=== PATIENT | male | born 1955 | race Caucasian/White ===

== ENCOUNTER → 2017-09-01 14:50 | Outpatient (CLI) | payer OTHER, SELFPAY ==
--- NOTE | 2017-09-01 14:52 | ADUL_ITS ---
Reason For Study: Iliac artery aneurysm Right Velocities Common Iliac Artery, prox= 176 cm./sec. Common Iliac Artery, mid = 63.6 cm./sec. Common Iliac Artery, dist = 121 cm./sec. Right Common Iliac Prox short 1.15 x 1.21 cm. Right Common Iliac Prox long 1.12 cm. Right Common Iliac Mid short 2.44 x 2.52 cm. Right Common Iliac Mid long 2.43 cm. Right Common Iliac Dist short 1.78 x 1.66 cm. Right Common Iliac Dist long 1.6 cm. 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 No change from the previous examination of 07/02/16 and minimal change from a remote exam of 05/28/2009 when it was 2.25 x 2.36cm. Ordering Physician: Do Cleary Performed By: Juanito Villareal RVT
== END ==
PROVIDERS: Family Provider Internal Medicine; PCP Internal Medicine; Visit Provider Internal Medicine
DX: I72.3 Aneurysm of iliac artery (principal)
CPT/HCPCS: 93926

== ENCOUNTER → 2020-10-17 15:35 | Outpatient (CLI) | payer MEDICARE, SELFPAY | PROVIDERS: PCP Internal Medicine; Referring Provider Internal Medicine Gastroenterology; Visit Provider Internal Medicine Gastroenterology | DX: Z11.59 Encounter for screening for other viral diseases (principal) | CPT/HCPCS: 87635; C9803; U0002 ==

== ENCOUNTER → 2020-10-19 15:18 | Outpatient (CLI) | payer MEDICARE, SELFPAY ==
--- NOTE | 2020-10-19 12:22 | EGD_PTH ---
PATIENT: HELENE PARISH LOC: [facility] U#:[id number] AGE/SX: 69/M ROOM: RE10/19/[address]: Dr. Delmer Rdz MD : 1955 BED: DIS: SPEC #: [id number] RECD: 10/19/20 15:01 STATUS: MENDEZ WHITFIELDShania #: [id number] [place]: 10/19/20 12:[address]: Delmer Rdz DEPT: SURGICAL PATHOLOGY RECD BY: Susan Atkins ENTERED: 10/22/20 08:20 SP TYPE: EGD BIOPSY OT DR: Dr. Do Cleary, [facility] Tissues: Gastric mucous membrane Procedures: Special Stain Group II Surgery Specimen Level IV Alcian Blue/PAS (control) HEADER OPERATION: EGD with biopsy PRE-OP DIAGNOSIS: GERD TISSUE SUBMITTED: Biopsy GE junction, rule out Dee's MICROSCOPIC DIAGNOSIS Gastroesophageal junction, biopsy: Mild chronic inflammation. Focal changes of reflux. No evidence of goblet cell metaplasia. See comment. AM:olvin 10/23/2020 COMMENT Alcian blue/PAS stain with matched control supports the above diagnosis. MICROSCOPIC DESCRIPTION Slides are reviewed. GROSS DESCRIPTION Received in fixative is one container labeled with the patient's name and designated biopsy GE junction. The specimen consists of multiple irregular fragments of light dalton soft tissue that in aggregate measure 0.6 x 0.5 x 0.1 cm. The specimen is totally submitted in one cassette. / SJ:olvin 10/22/20 TC:3 CPT: 71467, [id number]
== END ==
PROVIDERS: PCP Internal Medicine; Referring Provider Internal Medicine Gastroenterology; Visit Provider Internal Medicine Gastroenterology
DX: K21.9 Gastro-esophageal reflux disease without esophagitis (principal)
CPT/HCPCS: 88305; 88313

== ENCOUNTER → 2020-11-15 07:48 | Outpatient (CLI) | payer MEDICARE, SELFPAY ==
--- NOTE | 2020-11-15 07:58 | AAVD_ITS ---
Reason For Study: aneurysm Right Velocities Common Iliac Artery, prox= 153.4 cm./sec. Common Iliac Artery, mid = 44.2 cm./sec. Common Iliac Artery, dist = 104.5 cm./sec. Right Common Iliac Prox short 1.11 x 1.26 cm. Right Common Iliac Prox long 1.23 cm. Right Common Iliac Mid short 2.48 x 2.73 cm. Right Common Iliac Mid long 2.63 cm. Right Common Iliac Dist short .98 x .95cm. Right Common Iliac Dist long 1.04 cm. 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
== END ==
PROVIDERS: PCP Internal Medicine; Referring Provider Internal Medicine; Visit Provider Internal Medicine
DX: I72.3 Aneurysm of iliac artery (principal)
CPT/HCPCS: 93978

== ENCOUNTER → 2021-05-06 15:16 | Outpatient (CLI) | payer MEDICARE, SELFPAY ==
[2021-05-06 17:47] LABS: Hematocrit 40.5 % (40-54); Hemoglobin 13.6 g/dL (13.0-16.5); Mean Corp Hgb Conc 33.6 g/dL (32-36); Mean Corpuscular Hgb 32.5 pg (27.0-32.0); Mean Corpuscular Volume 96.9 fL (80-94); Mean Platelet Vol. 10.1 fl (6.2-12.0); Platelet Count 187 K/mm3 (150-450); RBC Distribution Width CV 11.9 % (11.6-14.6); RBC Distribution Width SD 42.5 fl (35.1-43.9); Red Blood Count 4.18 M/mm3 (4.6-6.2); White Blood Count 4.4 K/mm3 (4.4-11.0)
[2021-05-06 19:27] LABS: PSA,Total - Annual Screen 0.32 ng/mL (0.00-4.00); Prolactin 28.8 ng/mL
[2021-05-11 18:07] LABS: Testosterone, % Free 2.58 % (1.50-4.20); Testosterone, Total 252 ng/dL (264-916)
== END ==
PROVIDERS: PCP Internal Medicine; Referring Provider Internal Medicine Endocrinology, Diabetes & Metabolism; Visit Provider Internal Medicine Endocrinology, Diabetes & Metabolism
DX: E29.1 Testicular hypofunction (principal); D35.2 Benign neoplasm of pituitary gland; N42.9 Disorder of prostate, unspecified
CPT/HCPCS: 36415; 84146; 84153; 84402; 84403; 85027; G0103

== ENCOUNTER 2021-10-09 10:48 | Outpatient (CLI) | payer MEDICARE, SELFPAY ==
[2021-10-09 12:20] LABS: Hematocrit 42.4 % (40-54); Hemoglobin 14.4 g/dL (13.0-16.5); Mean Corpuscular Hgb 31.6 pg (27.0-32.0); Mean Platelet Vol. 10.2 fl (6.2-12.0); Platelet Count 184 K/mm3 (150-450); RBC Distribution Width CV 12.1 % (11.6-14.6); RBC Distribution Width SD 41.6 fl (35.1-43.9); Red Blood Count 4.56 M/mm3 (4.6-6.2)
[2021-10-09 12:30] LABS: PSA,Total- Diagnostic 0.44 ng/mL (0.0-4.0)
[2021-10-13 12:07] LABS: Testosterone, Free 11.25 ng/dL (5.00-21.00)
[2021-10-13 12:29] LABS: Testosterone, % Free 2.32 % (1.50-4.20); Testosterone, Total 485 ng/dL (264-916)
== END 2021-10-09 23:59 | disposition home or self-care (01) ==
LOC: MTLAB 10:50
PROVIDERS: PCP Internal Medicine; Referring Provider Internal Medicine Endocrinology, Diabetes & Metabolism; Visit Provider Internal Medicine Endocrinology, Diabetes & Metabolism
DX: E29.1 Testicular hypofunction (principal); D75.1 Secondary polycythemia; N42.9 Disorder of prostate, unspecified
CPT/HCPCS: 36415; 84153; 84402; 84403; 85027

== ENCOUNTER → 2022-04-21 | Outpatient (CLI) | payer MEDICARE, SELFPAY ==
[2022-04-21 15:13] LABS: Hematocrit 43.1 % (40-54); Hemoglobin 14.8 g/dL (13.0-16.5); Mean Corp Hgb Conc 34.3 g/dL (32-36); Mean Corpuscular Volume 96.2 fL (80-94); Mean Platelet Vol. 9.9 fl (6.2-12.0); Platelet Count 173 K/mm3 (150-450); RBC Distribution Width SD 42.6 fl (35.1-43.9); Red Blood Count 4.48 M/mm3 (4.6-6.2); White Blood Count 6.6 K/mm3 (4.4-11.0)
[2022-04-21 16:30] LABS: PSA,Total - Annual Screen 0.45 ng/mL (0.00-4.00); Prolactin 31.8 ng/mL
[2022-05-03 14:12] LABS: Testosterone, Free 22.31 ng/dL (5.00-21.00)
[2022-05-04 11:59] LABS: Testosterone, % Free 2.94 % (1.50-4.20); Testosterone, Total 759 ng/dL (264-916)
== END | disposition home or self-care (01) ==
PROVIDERS: PCP Internal Medicine; Referring Provider Internal Medicine Endocrinology, Diabetes & Metabolism; Visit Provider Internal Medicine Endocrinology, Diabetes & Metabolism
DX: E29.1 Testicular hypofunction (principal); D35.2 Benign neoplasm of pituitary gland; D75.1 Secondary polycythemia; N42.9 Disorder of prostate, unspecified
CPT/HCPCS: 36415; 84146; 84153; 84402; 84403; 85027; G0103

== ENCOUNTER → 2023-01-12 | Outpatient (CLI) | payer MEDICARE, SELFPAY ==
[2023-01-12 11:25] LABS: Prolactin 27.5 ng/mL
== END | disposition home or self-care (01) ==
LOC: LAB 10:31
PROVIDERS: PCP Internal Medicine; Referring Provider Internal Medicine Endocrinology, Diabetes & Metabolism; Visit Provider Internal Medicine Endocrinology, Diabetes & Metabolism
DX: E22.1 Hyperprolactinemia (principal); N42.9 Disorder of prostate, unspecified
CPT/HCPCS: 36415; 84146

== ENCOUNTER → 2023-07-28 | Outpatient (CLI) | payer MEDICARE, SELFPAY ==
--- OUTSIDE RECORDS SUMMARY | 2023-07-28 07:26 | XMS RPT_ITS | CCD ---
Author Name Unknown Address [address] [place] [address] Organization [facility] Care Team Providers Care Green Marketing Specialist Name Role Phone GLADIS CORDERO Unavailable Unavailabl e FAST, WHITNEY A Unavailable Unavailable AllaDo dobson Unavailable Fast, Whitney A Unavailable Skyla Martin Unavailable Delmer Rdz Unavailable Radha Murry Unavailable Unavailable Gravius, Winnie Unavailable Unavailable Unavailable Unavailable Do Cleary Unavailable Fast, Whitney A Unavailable Skyla Martin Unavailable Delmer Rdz Unavailable Chauncey Donovan Unavailable Unavailable MessengerRadha Unavailable Unavailable Unavailable Unavailable Gravius, Winnie Unavailable Unavailable Slarb, Nickie Unavailable Unavailable Gravius, Winnie Unavailable Unavailable Chauncey Donovan Unavailable Unavailable Unavailable Primary Care Provider UnavailChauncey Bashir Unavailable Unavailable Radha Murry Unavailable Unavailable Natividad Puentes Unavailable Unavailable ARLEEN POWELL Primary Care Unavailable ARLEEN POWELL Attending Unavailable FAST, WHITNEY DO Consulting Unavailable ARLEEN POWELL Admitting Unavailable PROVIDER, UNKNOWN Consulting Unavailable ARLEEN POWELL Primary Care Unavailable ARLEEN POWELL Attending Unavailable ALLA DO DO Consulting Unavailable ARLEEN POWELL Admitting Unavailable PROVIDER, UNKNOWN Consulting Unavailable Edilma Cleary DOhleen Unavailable Fast DO, Whitney A Unavailable Skyla Martin MD Unavailable Dr. Delmer Rdz Unavailable Gravius RADAR SYSTEMS ENGINEER, Winnie Unavailable Unavailable Deedee Aguiar MA Unavailable Unavailable Maryam, augusta Unavailable Unavailable Lovely RN, Radha Unavailable Unavailable Unavailable Unavailable Do Cleary DO Unavailable [phone] Fast DO, Whitney A Unavailable Alla COLBERT Do Attending Unavailable Fast DO, Whitney A Referring Unavailable Alla COLBERT Do Consulting Unavailable Félix CRUZ, Kabetya Unavailable Unavailable Alla COLBERT Do Deepti Primary Care Provider [phone] ARLEEN POWELL Attending Unavailable ALLA, DO Primary Care Unavailable Medications Current Medications Medication Drug Class(es) Dates Sig (Normalized) Sig (Original) Calcium-Magnesium 250-125 MG tablet (4 sources) Calcium-Magnesiu m 250-125 MG tablet finasteride 5 mg oral tablet (9 sources) 5-alpha Reductase Inhibitor finasteride (Proscar ) 5 MG tablet Completed/Discontinued Medications Medication Drug Class(es) Dates Sig (Normalized) Sig (Original) acetaminophen 650 mg / propoxyphene napsylate 100 mg oral tablet (20 sources) Opioid Agonist Start: 07-07-2007 End: 04-03-2008 take 1 tablet by mouth once as needed, then take 6 tablets by mouth as needed DARVOCET-N 100, 100-650MG (Oral Tablet) 1 (one) Tablet q 6 prn for 0 days Quantity: 60 {Tablet} Refills: 0 Ordered: 07-Jul-2007 Emely Pal Start : 07-Jul-2007 End : 03-Apr-2008 Discontinued acetaminophen 650 mg / propoxyphene napsylate 100 mg oral tablet (9 sources) Opioid Agonist Start: 07-07-2007 End: 04-03-2008 DARVOCET-N 100, 100-650MG (Oral Tablet) 1 (one) Tablet q 6 prn for 0 days Quantity: 60 {Tablet} Refills: 0 Ordered: 07-Jul-2007 Emely Pal Start : 07-Jul-2007 End : 03-Apr-2008 Discontinued amoxicillin 875 mg / clavulanate 125 mg oral tablet (20 sources) Penicillin-class Antibacterial Start: 10-03-2008 End: 11-01-2008 take 1 tablet by mouth twice daily AUGMENTIN, 875-125MG (Oral Tablet) 1 Tablet bid for 14 days Quantity: 28 {Tablet} Refills: 0 Ordered: 03-Oct-2008 Luanne Porras Start : 03-Oct-2008 End : 01-Nov-2008 Inactive B Complex (1 source) take 1 tablet by mouth once daily B COMPLEX (Oral Tablet) 1 tab qd Inactive B COMPLEX (Oral Tablet) (20 sources) take 1 tablet by mouth once daily B COMPLEX (Oral Tablet) 1 tab qd Inactive cabergoline 0.5 mg oral tablet (20 sources) Ergot Derivative Start: 01-28-2012 End: 09-21-2012 take 1 tablet by mouth every week CABERGOLINE, 0.5MG (Oral Tablet) 1 (one) Tablet bi weekly for 0 days Quantity: 30 {Tablet} Refills: 0 Ordered: 21-Sep-2012 Darci JEAN-BAPTISTERODGER Start : 28-Jan-2012 End : 21-Sep-2012 Inactive Problems Active Problems Problem Classification Problem Date Documented Da te Episodic/Chronic Abdominal pain (20 sources) Acute abdominal pain; Translations: [Abdominal pain, acute, left lower quadrant] Resolved: 01-28-2012 05-30-2016 Episodic Administrative/social admission (20 sources) Patient encounter status; Translations: [Physical exam for work or camp (Renamed from Encounter for school health examination)] 04-03-2021 Episodic Past or Other Problems Problem Classification Problem Date Documented Da te Episodic/Chronic Coronary atherosclerosis and other heart disease (20 sources) Coronary atherosclerosis and other heart disease Gastrointestinal hemorrhage (20 sources) Rectal hemorrhage; Translations: [Rectal bleeding] Onset: 11-06-2009 Resolved: 01-28-2012 05-30-2016 Episodic Headache; including migraine (20 sources) Headache; including migraine Hemorrhoids (20 sources) Hemorrhoids; Translations: [Bleeding internal hemorrhoids] Onset: 12-04-2009 Resolved: 05-30-2016 05-30-2016 Episodic Hepatitis (2 sources) Hepatitis Other and unspecified benign neoplasm (5 sources) Benign neoplasm of pituitary gland; Translations: [Benign neoplasm of pituitary gland] Onset: 03-22-2020 Episodic Other and unspecified benign neoplasm (7 sources) Pituitary adenoma; Translations: [Benign neoplasm of pituitary gland] Onset: 12-10-2010 01-16-2023 Episodic Other hematologic conditions (3 sources) Secondary polycythemia; Translations: [Secondary polycythemia] Onset: 03-22-2020 Episodic Other inflammatory condition of skin (16 sources) Seborrheic dermatitis; Translations: [Seborrhea] Resolved: 05-30-2016 05-30-2016 Episodic Results Test Name Value Interpretation Reference Range Facil ity Vital Signs Date Time Vital Sign Value Performing Clinician Facility 01-16-2023 10:47-0400 Body height 177.8 cm Arleen Powell MD Work Phone: [facility] 01-16-2023 10:47-0400 Body mass index (BMI) [Ratio] 24.97 kg/m2 Arleen Powell MD Work Phone: [facility] 01-16-2023 10:47-0400 Body weight 78.93 kg Arleen Powell MD Work Phone: [facility] 01-16-2023 10:47-0400 Diastolic blood pressure 79 mm[Hg] Arleen Powell MD Work Phone: [facility] 01-16-2023 10:47-0400 Heart rate 56 /min Arleen Powell MD Work Phone: [facility] 01-16-2023 10:47-0400 Systolic blood pressure 116 mm[Hg] Arleen Powell MD Work Phone: [facility] 10-03-2022 11:02-0400 Body height 176.53 cm Danish Heard [facility] Work Phone: 10-03-2022 11:02-0400 Body mass index (BMI) [Ratio] 25.8 kg/m2 Danish Heard [facility] Work Phone: 10-03-2022 11:02-0400 Body surface area Derived from formula 1.97 m2 Danish Heard [facility] Work Phone: 10-03-2022 11:02-0400 Body temperature 96.9 [degF] Danish Heard [facility] Work Phone: 10-03-2022 11:02-0400 Body weight 80.4 kg Danish Heard [facility] Work Phone: 10-03-2022 11:040 Diastolic blood pressure 82 mm[Hg] Danish Heard [facility] Work Phone: Encounters Encounter Date Encounter Type Care Provider Facility Start: 07-20-2023 Yulissa Powell MD Work Phone: [facility] Procedures Date Procedure Procedure Detail Performing Clinician Start: 11-15-2020 End: 11-15-2020 Abd Aortic/IVC Duplex scan Comments: See Note; NOTES: [facility] [address] [place] [address] Abd Aortic/IVC Duplex scan 11/15/20814 MR#: [id number] Acct: [id number] Name: OCTAVIO MCLAIN Rep #: [id number] : 1955 65 From: Jeet Casas MD Attending Dr: Dr. Do Cleary, Status: R EG CLI Ordering Dr: Do Cleary DO Date: 11/15/20 Location: [facility] Sex: M C Admitted: Reason For Study: aneurysm Right Velocities Common Iliac Artery, prox= 153.4 cm./sec. Common Iliac Artery, mid = 44.2 cm./sec. Common Iliac Artery, dist = 104.5 cm./sec. Right Common Iliac Prox short 1.11 x 1.26 cm. Right Common Iliac Prox long 1.23 cm. Right Common Iliac Mid short 2.48 x 2.73 cm. Right Common Iliac Mid long 2.63 cm. Right Common Iliac Dist short .98 x .95cm. Right Common Iliac Dist long 1.04 cm. 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 Do Cleary, Date Dictated: 11/15/20814 Date Transcribed: 11/15/201108 Mechanical Detailer: Mercedez Cleary DO Work Phone: Start: 10-11-2020 [object Object] ARLEEN POWELL Plan of Treatment Date Care Activity Detail Author Start: 08-28-2023 End: 08-28-2023 Patient encounter procedure 08/28/2023 10:00 AM EST Office Visit [facility] [address] [place] [address] Arleen Powell MD [address] [place] [address] [facility] Start: 07-18-2023 End: 01-17-2024 CBC W Auto Differential panel - Blood CBC auto differential Lab Routine Polycythemia Expected: 07/18/2023 (Approximate), Expires: 01/17/2024 [facility] Immunizations Immunization Date Immunization Notes Care Provider Fa cili 03-31-2022 Influenza, Seasonal, Quadrivalent, Adjuvanted Arleen Powell MD Work Phone: [facility] 03-31-2022 influenza virus vaccine, unspecified formulation Arleen Powell MD Work Phone: [facility] 07-20-2020 COVID-Moderna (100 MCG/0.5 ML) Do Alla DO Work Phone: [facility] Work Phone: 06-15-2020 zoster vaccine recombinant Arleen Powell MD Work Phone: [facility] 03-07-2020 zoster vaccine recombinant Arleen Powell MD Work Phone: [facility] 07-20-2019 zoster vaccine, live Kathlee n Alla DO Work Phone: [facility] Work Phone: 04-24-2010 influenza virus vaccine, unspecified formulation Arleen Powell MD Work Phone: [facility] 05-23-2009 novel [id number], preservative-free, injectable Arleen Powell MD Work Phone: [facility] Payers Date Payer Category Payer Medicare [id number] 2022 Medicare [employer] MEDICARE UHC AARP MEDICARE ADVANTAGE [facility] [id number] 2022-Present [phone] [address] [address] [place] [address] Medicare HMO [id number] 2020 Private Health Insurance [id number] 2017 Unknown [id number] 2015 Unknown [id number] 2005 Unknown [id number] 1955 Unknown [id number] 1955 Unknown [id number] 1955 Unknown [id number] Medicare [id number] Unknown Social History Date Type Detail Facility Start: 07-18-2022 End: 01-16-2023 Alcohol Use Former smoker [facility] Work Phone: Functional Status Date Assessment Result Facility 05-18-2019 LP-IR Score LP-IR Score 59 [facility] Work Phone: Telephone encounter Note 07-21-2023 Telephone Encounter - Mae Valadez MA - 07/21/2023 9:10 AM EST Note Date & Type Note Facility 07-21-2023 Telephone encounter Note Form atting of this note might be different from the original. Rx pending. Next appt 08/28/2023. [facility] Note 07-21-2023 Telephone Encounter - Mae Valadez MA - 07/21/2023 9:10 AM EST Note Date & Type Note Facility 07-21-2023 Miscellaneous Notes Formattin g of this note might be different from the original. Rx pending. Next appt 08/28/2023. documented in this encounter [facility] History of Present illness Narrative 01-16-2023 Arleen Powell MD - 01/16/2023 10:20 AM EDT Note Date & Type Note Facility 01-16-2023 History of Presen t illness Narrative . [facility] [place] [address] [facility] [place] [address] Dept: [phone] Dept Visit type: Established patient Reason for Visit: Follow-up and Hypogonadism Assessment and Plan 1. Hypogonadism in male The following orders have not been finalized: - testosterone (Androgel) 25 MG/2.5GM (1%) gel 2. Hyperprolactinemia (HCC) 3. Pituitary adenoma (HCC) No follow-ups on file. Subjective HPI Follow-up appointment for hypogonadism Taking 1 % gel 25 mg/2.5 grams (2) packets daily Physical Strength is good Due for refill now Some difficulty with erections Had tried viagra several years ago just once which did not work Pt will consider trying again potentially higher dose different pde- emanuel jorgensen Has prolactinoma developed headaches 10-[address] scan showed tumor pituitary did mri Last mri prolactinoma stable 7 mm max dimension No change in vision Has testing once yearly via ophthalmology Review of Systems Constitutional: Negative for activity change, appetite change and fatigue. HENT: Negative for hearing loss, trouble swallowing and voice change. Respiratory: Negative for cough, shortness of breath and wheezing. Cardiovascular: Negative for chest pain and palpitations. Gastrointestinal: Negative for nausea and vomiting. Endocrine: Negative for cold intolerance. Genitourinary: Negative for dysuria and hematuria. Skin: Negative for rash. Neurological: Negative for tremors and headaches. Hematological: Negative for adenopathy. Does not bruise/bleed easily. Psychiatric/Behavioral: Positive for sleep disturbance (on and off). No Known Allergies Outpatient Medications Prior to Visit Medication Sig Dispense Refill Calcium-Magnesium 250-125 MG tablet cholecalciferol (Vitamin D-3) 25 MCG (1000 UT) tablet Take 1,000 Units by mouth daily. finasteride (Proscar) 5 MG tablet lansoprazole (Prevacid) [address] capsule Take 30 mg by mouth daily. tamsulosin (Flomax) 0.4 MG 24 hr capsule Take 0.4 mg by mouth daily. testosterone (Androgel) 25 MG/2.5GM (1%) gel 2 packets daily (dispense 90 day supply) Strength: 25 MG/2.5GM (1%) 180 packet 2 triamcinolone (Kenalog) 0.1 % cream Multiple Vitamin (multivitamin) capsule Take 1 capsule by mouth in the morning. pantoprazole (ProtoNix) 40 MG EC tablet Take 40 mg by mouth in the morning. No facility-administered medications prior to visit. Past Medical History: Diagnosis Date GERD (gastroesophageal reflux disease) Low testosterone Macroadenoma Social History Tobacco Use Smoking status: Never Smokeless tobacco: Never Substance Use Topics Alcohol use: Yes Alcohol/week: 1.0 standard drink of alcohol History reviewed. No pertinent surgical history. Family History Problem Relation Name Age of Onset No Known Problems Maternal Grandfather No Known Problems Other No Known Problems Paternal Grandmother No Known Problems Maternal Cousin No Known Problems Father's Brother No Known Problems Paternal Cousin No Known Problems Maternal Grandmother Heart disease Brother No Known Problems Paternal Grandfather No Known Problems Father's Sister No Known Problems Mother's Sister High Blood Pressure Mother No Known Problems Mother's Brother Objective BP 116/79 Pulse 56 Ht 5' 10 (1.778 m) Wt 174 lb (78.9 kg) BMI 24.97 kg/m Physical Exam Vitals reviewed. Constitutional: General: He is not in acute distress. Appearance: Normal appearance. He is not ill-appearing. Eyes: General: No scleral icterus. Right eye: No discharge. Left eye: No discharge. Cardiovascular: Rate and Rhythm: Normal rate and regular rhythm. Pulses: Normal pulses. Heart sounds: Normal heart sounds. No murmur heard. No friction rub. Pulmonary: Effort: Pulmonary effort is normal. No respiratory distress. Breath sounds: Normal breath sounds. No stridor. No wheezing or rhonchi. Musculoskeletal: Cervical back: Normal range of motion and neck supple. No rigidity or tenderness. Skin: General: Skin is warm and dry. Coloration: Skin is not jaundiced or pale. Neurological: General: No focal deficit present. Mental Status: He is alert and oriented to person, place, and time. Cranial Nerves: No cranial nerve deficit. Sensory: No sensory deficit. Psychiatric: Mood and Affect: Mood normal. Behavior: Behavior normal. Data Reviewed and Summarized Labs: No results found for: TSH, T3, T4, TRAB No results found for: WBC, HGB, HCT, PLT, MCV No results found for: NA, K, CL, CO2, BUN, CREATININE, GLUCOSE, CALCIUM, MG, PHOS No results found for: AST, ALT, PROT, BILITOT, ALKPHOS, INR, APTT, LIPASE HEMOGLOBIN A1C Date Value Ref Range Status 10/15/2021 8.4 % Final Imaging/Testing: Arleen Powell MD documented [facility] this encounter [facility] note Note Date & Type Note Facility documented in this encounter [facility] Evaluation note Note Date & Type Note Facility documented in this encounter [facility] Instructions Note Date & Type Note Facility [facility] Work Phone: Instructions Note Date & Type Note Facility [facility] Work Phone: Instructions Note Date & Type Note Facility [facility] Work Phone: Instructions Note Date & Type Note Facility [facility] Work Phone: Instructions Note Date & Type Note Facility [facility] Work Phone: Summary Purpose Family History No Family History Records FoundUnknown Family Member Name Dates Details Father Comments:Father in acci dent Status:Active Unknown Family Member Name Dates Details Father Comments:Father in acci dent Status:Active Unknown Family Member Name Dates Details Father Comments:Father in acci dent Status:Active Unknown Family Member Name Dates Details Father Comments:Father in acci dent Status:Active Unknown Family Member Name Dates Details Father Comments:Father in acci dent Status:Active Unknown Family Member Name Dates Details Father Comments:Father in acci dent Status:Active Unknown Family Member Name Dates Details Father Comments:Father in acci dent Status:Active Unknown Family Member Name Dates Details Father Comments:Father in acci dent Status:Active Unknown Family Member Name Dates Details Father Comments:Father in acci dent Status:Active Unknown Family Member Name Dates Details Father Comments:Father in acci dent Status:Active Unknown Family Member Name Dates Details Father Comments:Father in acci dent Status:Active Unknown Family Member Name Dates Details Father Comments:Father in acci dent Status:Active Unknown Family Member Name Dates Details Father Comments:Father in acci dent Status:Active Unknown Family Member Name Dates Details Father Comments:Father in acci dent Status:Active Unknown Family Member Name Dates Details Father Comments:Father in acci dent Status:Active Unknown Family Member Name Dates Details Father Comments:Father in acci dent Status:Active Unknown Family Member Name Dates Details Father Comments:Father in acci dent Status:Active Unknown Family Member Name Dates Details Father Comments:Father in acci dent Status:Active Advance Directives No Advanced Directives Records FoundNo Advanced Directives Records FoundNo Advanced Directives Records FoundNo Advanced Directives Records FoundNo Advanced Directives Records Found Instructions Name Dates Details Non-smoker : How to access h ealth information online Indication:Non-smoker Non-smoker : How to access h ealth information online - Detail Indication:Non-smoker Non-smoker : Patient Instruc tions Indication:Non-smoker Flu-like symptoms : How to a ccess health information online Indication:Flu-like symptoms Flu-like symptoms : How to a ccess health information online - Detail Indication:Flu-like symptoms Flu-like symptoms : Patient Instructions Indication:Flu-like symptoms GERD (gastroesophageal reflu x disease) : Patient Instructions Indication:GERD (gastroesophageal reflux disease) NEOP, BNG, PITUITARY GLAND : Patient Instructions Indication:NEOP, BNG, PITUITARY GLAND Name Dates Details BMI 26.0-26.9,adult : How to access health information online Indication:BMI 26.0-26.9,adult BMI 26.0-26.9,adult : How to access health information online - Detail Indication:BMI 26.0-26.9,adult BMI 26.0-26.9,adult : Patien t Instructions Indication:BMI 26.0-26.9,adult Non-smoker : How to access h ealth information online Indication:Non-smoker Non-smoker : How to access h ealth information online - Detail Indication:Non-smoker Non-smoker : Patient Instruc tions Indication:Non-smoker Flu-like symptoms : How to a ccess health information online Indication:Flu-like symptoms Flu-like symptoms : How to a ccess health information online - Detail Indication:Flu-like symptoms Flu-like symptoms : Patient Instructions Indication:Flu-like symptoms GERD (gastroesophageal reflu x disease) : Patient Instructions Indication:GERD (gastroesophageal reflux disease) NEOP, BNG, PITUITARY GLAND : Patient Instructions Indication:NEOP, BNG, PITUITARY GLAND Name Dates Details BMI 26.0-26.9,adult : How to access health information online Indication:BMI 26.0-26.9,adult BMI 26.0-26.9,adult : How to access health information online - Detail Indication:BMI 26.0-26.9,adult BMI 26.0-26.9,adult : Patien t Instructions Indication:BMI 26.0-26.9,adult Non-smoker : How to access h ealth information online Indication:Non-smoker Non-smoker : How to access h ealth information online - Detail Indication:Non-smoker Non-smoker : Patient Instruc tions Indication:Non-smoker Flu-like symptoms : How to a ccess health information online Indication:Flu-like symptoms Flu-like symptoms : How to a ccess health information online - Detail Indication:Flu-like symptoms Flu-like symptoms : Patient Instructions Indication:Flu-like symptoms GERD (gastroesophageal reflu x disease) : Patient Instructions Indication:GERD (gastroesophageal reflux disease) NEOP, BNG, PITUITARY GLAND : Patient Instructions Indication:NEOP, BNG, PITUITARY GLAND Name Dates Details BMI 26.0-26.9,adult : How to access health information online Indication:BMI 26.0-26.9,adult BMI 26.0-26.9,adult : How to access health information online - Detail Indication:BMI 26.0-26.9,adult BMI 26.0-26.9,adult : Patien t Instructions Indication:BMI 26.0-26.9,adult Non-smoker : How to access h ealth information online Indication:Non-smoker Non-smoker : How to access h ealth information online - Detail Indication:Non-smoker Non-smoker : Patient Instruc tions Indication:Non-smoker Flu-like symptoms : How to a ccess health information online Indication:Flu-like symptoms Flu-like symptoms : How to a ccess health information online - Detail Indication:Flu-like symptoms Flu-like symptoms : Patient Instructions Indication:Flu-like symptoms GERD (gastroesophageal reflu x disease) : Patient Instructions Indication:GERD (gastroesophageal reflux disease) NEOP, BNG, PITUITARY GLAND : Patient Instructions Indication:NEOP, BNG, PITUITARY GLAND Name Dates Details How to access health informa tion online Indication:BMI 26.0-26.9,adult Start:25-Aug-2018 Instruction Type:Patient Education How to access health informa tion online - Detail Indication:BMI 26.0-26.9,adult Start:25-Aug-2018 Instruction Type:Patient Education Patient Instructions Indication:BMI 26.0-26.9,adult Start:25-Aug-2018 Instruction Type:Provider Instructions for Treatment How to access health informa tion online Indication:Non-smoker Start:19-Aug-2017 Instruction Type:Patient Education How to access health informa tion online - Detail Indication:Non-smoker Start:19-Aug-2017 Instruction Type:Patient Education Patient Instructions Indication:Non-smoker Start:19-Aug-2017 Instruction Type:Provider Instructions for Treatment How to access health informa tion online Indication:Flu-like symptoms Start:23-Oct-2016 Instruction Type:Patient Education How to access health informa tion online - Detail Indication:Flu-like symptoms Start:23-Oct-2016 Instruction Type:Patient Education Patient Instructions Indication:Flu-like symptoms Start:23-Oct-2016 Instruction Type:Provider Instructions for Treatment How to access health informa tion online Indication:Non-smoker Start:30-May-2016 Instruction Type:Patient Education How to access health informa tion online - Detail Indication:Non-smoker Start:30-May-2016 Instruction Type:Patient Education Patient Instructions Indication:Non-smoker Start:30-May-2016 Instruction Type:Provider Instructions for Treatment Patient Instructions Indication:GERD (gastroesophageal reflux disease) Start:04-Aug-2014 Instruction Type:Provider Instructions for Treatment Patient Instructions Indication:NEOP, BNG, PIT[employer] GLAND Start:31-May-2012 Instruction Type:Provider Instructions for Treatment Patient Instructions Indication:GERD (gastroesophageal reflux disease) Start:31-May-2012 Instruction Type:Provider Instructions for Treatment Name Dates Details How to access health informa tion online Indication:Non-smoker Start:18-May-2019 Instruction Type:Patient Education How to access health informa tion online - Detail Indication:Non-smoker Start:18-May-2019 Instruction Type:Patient Education Patient Instructions Indication:Non-smoker Start:18-May-2019 Instruction Type:Provider Instructions for Treatment How to access health informa tion online Indication:BMI 26.0-26.9,adult Start:25-Aug-2018 Instruction Type:Patient Education How to access health informa tion online - Detail Indication:BMI 26.0-26.9,adult Start:25-Aug-2018 Instruction Type:Patient Education Patient Instructions Indication:BMI 26.0-26.9,adult Start:25-Aug-2018 Instruction Type:Provider Instructions for Treatment How to access health informa tion online Indication:Non-smoker Start:19-Aug-2017 Instruction Type:Patient Education How to access health informa tion online - Detail Indication:Non-smoker Start:19-Aug-2017 Instruction Type:Patient Education Patient Instructions Indication:Non-smoker Start:19-Aug-2017 Instruction Type:Provider Instructions for Treatment How to access health informa tion online Indication:Flu-like symptoms Start:23-Oct-2016 Instruction Type:Patient Education How to access health informa tion online - Detail Indication:Flu-like symptoms Start:23-Oct-2016 Instruction Type:Patient Education Patient Instructions Indication:Flu-like symptoms Start:23-Oct-2016 Instruction Type:Provider Instructions for Treatment How to access health informa tion online Indication:Non-smoker Start:30-May-2016 Instruction Type:Patient Education How to access health informa tion online - Detail Indication:Non-smoker Start:30-May-2016 Instruction Type:Patient Education Patient Instructions Indication:Non-smoker Start:30-May-2016 Instruction Type:Provider Instructions for Treatment Patient Instructions Indication:GERD (gastroesophageal reflux disease) Start:04-Aug-2014 Instruction Type:Provider Instructions for Treatment Patient Instructions Indication:NEOP, BNG, P[employer] Start:31-May-2012 Instruction Type:Provider Instructions for Treatment Patient Instructions Indication:GERD (gastroesophageal reflux disease) Start:31-May-2012 Instruction Type:Provider Instructions for Treatment Name Dates Details How to access health informa tion online Indication:Non-smoker Start:18-May-2019 Instruction Type:Patient Education How to access health informa tion online - Detail Indication:Non-smoker Start:18-May-2019 Instruction Type:Patient Education Patient Instructions Indication:Non-smoker Start:18-May-2019 Instruction Type:Provider Instructions for Treatment How to access health informa tion online Indication:BMI 26.0-26.9,adult Start:25-Aug-2018 Instruction Type:Patient Education How to access health informa tion online - Detail Indication:BMI 26.0-26.9,adult Start:25-Aug-2018 Instruction Type:Patient Education Patient Instructions Indication:BMI 26.0-26.9,adult Start:25-Aug-2018 Instruction Type:Provider Instructions for Treatment How to access health informa tion online Indication:Non-smoker Start:19-Aug-2017 Instruction Type:Patient Education How to access health informa tion online - Detail Indication:Non-smoker Start:19-Aug-2017 Instruction Type:Patient Education Patient Instructions Indication:Non-smoker Start:19-Aug-2017 Instruction Type:Provider Instructions for Treatment How to access health informa tion online Indication:Flu-like symptoms Start:23-Oct-2016 Instruction Type:Patient Education How to access health informa tion online - Detail Indication:Flu-like symptoms Start:23-Oct-2016 Instruction Type:Patient Education Patient Instructions Indication:Flu-like symptoms Start:23-Oct-2016 Instruction Type:Provider Instructions for Treatment How to access health informa tion online Indication:Non-smoker Start:30-May-2016 Instruction Type:Patient Education How to access health informa tion online - Detail Indication:Non-smoker Start:30-May-2016 Instruction Type:Patient Education Patient Instructions Indication:Non-smoker Start:30-May-2016 Instruction Type:Provider Instructions for Treatment Patient Instructions Indication:GERD (gastroesophageal reflux disease) Start:04-Aug-2014 Instruction Type:Provider Instructions for Treatment Patient Instructions Indication:NEOP, BNG, [employer] Start:31-May-2012 Instruction Type:Provider Instructions for Treatment Patient Instructions Indication:GERD (gastroesophageal reflux disease) Start:31-May-2012 Instruction Type:Provider Instructions for Treatment Name Dates Details BMI 26.0-26.9,adult : How to access health information online Indication:BMI 26.0-26.9,adult BMI 26.0-26.9,adult : How to access health information online - Detail Indication:BMI 26.0-26.9,adult BMI 26.0-26.9,adult : Patien t Instructions Indication:BMI 26.0-26.9,adult Non-smoker : How to access h ealth information online Indication:Non-smoker Non-smoker : How to access h ealth information online - Detail Indication:Non-smoker Non-smoker : Patient Instruc tions Indication:Non-smoker Flu-like symptoms : How to a ccess health information online Indication:Flu-like symptoms Flu-like symptoms : How to a ccess health information online - Detail Indication:Flu-like symptoms Flu-like symptoms : Patient Instructions Indication:Flu-like symptoms GERD (gastroesophageal reflu x disease) : Patient Instructions Indication:GERD (gastroesophageal reflux disease) NEOP, BNG, P[employer] [place] : Patient Instructions Indication:NEOP, BNG, P[employer] Name Dates Details How to access health informa tion online Indication:Non-smoker Start:18-May-2019 Instruction Type:Patient Education How to access health informa tion online - Detail Indication:Non-smoker Start:18-May-2019 Instruction Type:Patient Education Patient Instructions Indication:Non-smoker Start:18-May-2019 Instruction Type:Provider Instructions for Treatment How to access health informa tion online Indication:BMI 26.0-26.9,adult Start:25-Aug-2018 Instruction Type:Patient Education How to access health informa tion online - Detail Indication:BMI 26.0-26.9,adult Start:25-Aug-2018 Instruction Type:Patient Education Patient Instructions Indication:BMI 26.0-26.9,adult Start:25-Aug-2018 Instruction Type:Provider Instructions for Treatment How to access health informa tion online Indication:Non-smoker Start:19-Aug-2017 Instruction Type:Patient Education How to access health informa tion online - Detail Indication:Non-smoker Start:19-Aug-2017 Instruction Type:Patient Education Patient Instructions Indication:Non-smoker Start:19-Aug-2017 Instruction Type:Provider Instructions for Treatment How to access health informa tion online Indication:Flu-like symptoms Start:23-Oct-2016 Instruction Type:Patient Education How to access health informa tion online - Detail Indication:Flu-like symptoms Start:23-Oct-2016 Instruction Type:Patient Education Patient Instructions Indication:Flu-like symptoms Start:23-Oct-2016 Instruction Type:Provider Instructions for Treatment How to access health informa tion online Indication:Non-smoker Start:30-May-2016 Instruction Type:Patient Education How to access health informa tion online - Detail Indication:Non-smoker Start:30-May-2016 Instruction Type:Patient Education Patient Instructions Indication:Non-smoker Start:30-May-2016 Instruction Type:Provider Instructions for Treatment Patient Instructions Indication:GERD (gastroesophageal reflux disease) Start:04-Aug-2014 Instruction Type:Provider Instructions for Treatment Patient Instructions Indication:NEOP, BNG, P[employer] [place] Start:31-May-2012 Instruction Type:Provider Instructions for Treatment Patient Instructions Indication:GERD (gastroesophageal reflux disease) Start:31-May-2012 Instruction Type:Provider Instructions for Treatment Name Dates Details Patient Instructions Indication:Non-smoker Start:28-Sep-2020 Instruction Type:Provider Instructions for Treatment How to Access Health Informa tion Online using Patient Portal and [employer]rd [employer] Apps Indication:Non-smoker Start:28-Sep-2020 Instruction Type:Patient Education How to access health informa tion online Indication:Non-smoker Start:18-May-2019 Instruction Type:Patient Education How to access health informa tion online - Detail Indication:Non-smoker Start:18-May-2019 Instruction Type:Patient Education Patient Instructions Indication:Non-smoker Start:18-May-2019 Instruction Type:Provider Instructions for Treatment How to access health informa tion online Indication:BMI 26.0-26.9,adult Start:25-Aug-2018 Instruction Type:Patient Education How to access health informa tion online - Detail Indication:BMI 26.0-26.9,adult Start:25-Aug-2018 Instruction Type:Patient Education Patient Instructions Indication:BMI 26.0-26.9,adult Start:25-Aug-2018 Instruction Type:Provider Instructions for Treatment How to access health informa tion online Indication:Non-smoker Start:19-Aug-2017 Instruction Type:Patient Education How to access health informa tion online - Detail Indication:Non-smoker Start:19-Aug-2017 Instruction Type:Patient Education Patient Instructions Indication:Non-smoker Start:19-Aug-2017 Instruction Type:Provider Instructions for Treatment How to access health informa tion online Indication:Flu-like symptoms Start:23-Oct-2016 Instruction Type:Patient Education How to access health informa tion online - Detail Indication:Flu-like symptoms Start:23-Oct-2016 Instruction Type:Patient Education Patient Instructions Indication:Flu-like symptoms Start:23-Oct-2016 Instruction Type:Provider Instructions for Treatment How to access health informa tion online Indication:Non-smoker Start:30-May-2016 Instruction Type:Patient Education How to access health informa tion online - Detail Indication:Non-smoker Start:30-May-2016 Instruction Type:Patient Education Patient Instructions Indication:Non-smoker Start:30-May-2016 Instruction Type:Provider Instructions for Treatment Patient Instructions Indication:GERD (gastroesophageal reflux disease) Start:04-Aug-2014 Instruction Type:Provider Instructions for Treatment Patient Instructions Indication:NEOP, BNG, P[employer] [place] Start:31-May-2012 Instruction Type:Provider Instructions for Treatment Patient Instructions Indication:GERD (gastroesophageal reflux disease) Start:31-May-2012 Instruction Type:Provider Instructions for Treatment Name Dates Details Patient Instructions Indication:Non-smoker Start:28-Sep-2020 Instruction Type:Provider Instructions for Treatment How to Access Health Informa tion Online using Patient Portal and [employer]rd [employer] Apps Indication:Non-smoker Start:28-Sep-2020 Instruction Type:Patient Education How to access health informa tion online Indication:Non-smoker Start:18-May-2019 Instruction Type:Patient Education How to access health informa tion online - Detail Indication:Non-smoker Start:18-May-2019 Instruction Type:Patient Education Patient Instructions Indication:Non-smoker Start:18-May-2019 Instruction Type:Provider Instructions for Treatment How to access health informa tion online Indication:BMI 26.0-26.9,adult Start:25-Aug-2018 Instruction Type:Patient Education How to access health informa tion online - Detail Indication:BMI 26.0-26.9,adult Start:25-Aug-2018 Instruction Type:Patient Education Patient Instructions Indication:BMI 26.0-26.9,adult Start:25-Aug-2018 Instruction Type:Provider Instructions for Treatment How to access health informa tion online Indication:Non-smoker Start:19-Aug-2017 Instruction Type:Patient Education How to access health informa tion online - Detail Indication:Non-smoker Start:19-Aug-2017 Instruction Type:Patient Education Patient Instructions Indication:Non-smoker Start:19-Aug-2017 Instruction Type:Provider Instructions for Treatment How to access health informa tion online Indication:Flu-like symptoms Start:23-Oct-2016 Instruction Type:Patient Education How to access health informa tion online - Detail Indication:Flu-like symptoms Start:23-Oct-2016 Instruction Type:Patient Education Patient Instructions Indication:Flu-like symptoms Start:23-Oct-2016 Instruction Type:Provider Instructions for Treatment How to access health informa tion online Indication:Non-smoker Start:30-May-2016 Instruction Type:Patient Education How to access health informa tion online - Detail Indication:Non-smoker Start:30-May-2016 Instruction Type:Patient Education Patient Instructions Indication:Non-smoker Start:30-May-2016 Instruction Type:Provider Instructions for Treatment Patient Instructions Indication:GERD (gastroesophageal reflux disease) Start:04-Aug-2014 Instruction Type:Provider Instructions for Treatment Patient Instructions Indication:NEOP, BNG, P[employer] [place] Start:31-May-2012 Instruction Type:Provider Instructions for Treatment Patient Instructions Indication:GERD (gastroesophageal reflux disease) Start:31-May-2012 Instruction Type:Provider Instructions for Treatment Name Dates Details Patient Instructions Indication:Non-smoker Start:28-Sep-2020 Instruction Type:Provider Instructions for Treatment How to Access Health Informa tion Online using Patient Portal and [employer]rd [employer] Apps Indication:Non-smoker Start:28-Sep-2020 Instruction Type:Patient Education How to access health informa tion online Indication:Non-smoker Start:18-May-2019 Instruction Type:Patient Education How to access health informa tion online - Detail Indication:Non-smoker Start:18-May-2019 Instruction Type:Patient Education Patient Instructions Indication:Non-smoker Start:18-May-2019 Instruction Type:Provider Instructions for Treatment How to access health informa tion online Indication:BMI 26.0-26.9,adult Start:25-Aug-2018 Instruction Type:Patient Education How to access health informa tion online - Detail Indication:BMI 26.0-26.9,adult Start:25-Aug-2018 Instruction Type:Patient Education Patient Instructions Indication:BMI 26.0-26.9,adult Start:25-Aug-2018 Instruction Type:Provider Instructions for Treatment How to access health informa tion online Indication:Non-smoker Start:19-Aug-2017 Instruction Type:Patient Education How to access health informa tion online - Detail Indication:Non-smoker Start:19-Aug-2017 Instruction Type:Patient Education Patient Instructions Indication:Non-smoker Start:19-Aug-2017 Instruction Type:Provider Instructions for Treatment How to access health informa tion online Indication:Flu-like symptoms Start:23-Oct-2016 Instruction Type:Patient Education How to access health informa tion online - Detail Indication:Flu-like symptoms Start:23-Oct-2016 Instruction Type:Patient Education Patient Instructions Indication:Flu-like symptoms Start:23-Oct-2016 Instruction Type:Provider Instructions for Treatment How to access health informa tion online Indication:Non-smoker Start:30-May-2016 Instruction Type:Patient Education How to access health informa tion online - Detail Indication:Non-smoker Start:30-May-2016 Instruction Type:Patient Education Patient Instructions Indication:Non-smoker Start:30-May-2016 Instruction Type:Provider Instructions for Treatment Patient Instructions Indication:GERD (gastroesophageal reflux disease) Start:04-Aug-2014 Instruction Type:Provider Instructions for Treatment Patient Instructions Indication:NEOP, BNG, [employer] [place] Start:31-May-2012 Instruction Type:Provider Instructions for Treatment Patient Instructions Indication:GERD (gastroesophageal reflux disease) Start:31-May-2012 Instruction Type:Provider Instructions for Treatment Name Dates Details Patient Instructions Indication:Non-smoker Start:28-Sep-2020 Instruction Type:Provider Instructions for Treatment How to Access Health Informa tion Online using Patient Portal and [employer]rd [employer] Apps Indication:Non-smoker Start:28-Sep-2020 Instruction Type:Patient Education How to access health informa tion online Indication:Non-smoker Start:18-May-2019 Instruction Type:Patient Education How to access health informa tion online - Detail Indication:Non-smoker Start:18-May-2019 Instruction Type:Patient Education Patient Instructions Indication:Non-smoker Start:18-May-2019 Instruction Type:Provider Instructions for Treatment How to access health informa tion online Indication:BMI 26.0-26.9,adult Start:25-Aug-2018 Instruction Type:Patient Education How to access health informa tion online - Detail Indication:BMI 26.0-26.9,adult Start:25-Aug-2018 Instruction Type:Patient Education Patient Instructions Indication:BMI 26.0-26.9,adult Start:25-Aug-2018 Instruction Type:Provider Instructions for Treatment How to access health informa tion online Indication:Non-smoker Start:19-Aug-2017 Instruction Type:Patient Education How to access health informa tion online - Detail Indication:Non-smoker Start:19-Aug-2017 Instruction Type:Patient Education Patient Instructions Indication:Non-smoker Start:19-Aug-2017 Instruction Type:Provider Instructions for Treatment How to access health informa tion online Indication:Flu-like symptoms Start:23-Oct-2016 Instruction Type:Patient Education How to access health informa tion online - Detail Indication:Flu-like symptoms Start:23-Oct-2016 Instruction Type:Patient Education Patient Instructions Indication:Flu-like symptoms Start:23-Oct-2016 Instruction Type:Provider Instructions for Treatment How to access health informa tion online Indication:Non-smoker Start:30-May-2016 Instruction Type:Patient Education How to access health informa tion online - Detail Indication:Non-smoker Start:30-May-2016 Instruction Type:Patient Education Patient Instructions Indication:Non-smoker Start:30-May-2016 Instruction Type:Provider Instructions for Treatment Patient Instructions Indication:GERD (gastroesophageal reflux disease) Start:04-Aug-2014 Instruction Type:Provider Instructions for Treatment Patient Instructions Indication:NEOP, BNG, P[employer] [place]AND Start:31-May-2012 Instruction Type:Provider Instructions for Treatment Patient Instructions Indication:GERD (gastroesophageal reflux disease) Start:31-May-2012 Instruction Type:Provider Instructions for Treatment Additional Source Comments (unrecognized sect ion and content) No Status Records FoundNo Status Records FoundNo Status Records FoundNo Status Records FoundNo Status Records Found INFORMATION SOURCE (unrecogn ized section and content) DATE CREATED AUTHOR AUTHOR'S ORGANIZ ATION 10/15/2020 [facility] DATE CREATED AUTHOR AUTHOR'S ORGANIZ ATION 10/16/2020 [facility] DATE CREATED AUTHOR AUTHOR'S ORGANIZ ATION 09/30/2022 [facility] DATE CREATED AUTHOR AUTHOR'S ORGANIZ ATION 07/21/2023 [facility] Source Comments (unrecognize d section and content) In the event this informatio n is protected by the Federal Confidentiality of Alcohol and Drug Abuse Patient Records regulations: The Federal rules restrict any use of the information to criminally investigate or prosecute any alcohol or drug abuse patient.[facility] Reason for Visit (unrecogniz ed section and content) Reason Onset Date Comments Med Refill 07/20/2023 Care Teams (unrecognized sec tion and content) Green Marketing Specialist Relationship Specialty Start Date End Date Do Cleary DO [id number] [facility] [address] [place] [id number] PCP - General 11/18/17 FOR RECORDS PERTAINING TO PATIENTS WHO ARE OR HAVE BEEN ENROLLED IN A CHEMICAL DEPENDENCY/SUBSTANCEABUSE PROGRAM, SOME INFORMATION MAY BE OMITTED. This clinical summary was aggregated from multiple sources. Caution should be exercised in using it in the provision of clinical care. This summary normalizes information from multiple sources, and as a consequence, information in this document may materially change the coding, format and clinical context of patient data. In addition, data may be omitted in some cases. CLINICAL DECISIONS SHOULD BE BASED ON THE PRIMARY CLINICAL RECORDS. [employer] provides no warranty or guarantee of the accuracy or completeness of information in this document.
[2023-07-28 07:54] LABS: Absolute Lymphocyte Count 1.58 X10^3/uL (0.83-4.51); Absolute Neutrophil Count 2.1 X10^3/uL (2.0-7.7); Basophil# 0.06 X10^3/uL; Basophil% 1.4 % (0-1); Eosinophil# 0.14 X10^3/uL; Eosinophils% 3.2 % (0-5); Hematocrit 44.2 % (40-54); Hemoglobin 14.7 g/dL (13.0-16.5); Lymphocyte # 1.58 X10^3/ul (0.83-4.51); Mean Corp Hgb Conc 33.3 g/dL (32-36); Mean Corpuscular Hgb 31.7 pg (27.0-32.0); Mean Corpuscular Volume 95.5 fL (80-94); Mean Platelet Vol. 9.8 fl (6.2-12.0); Monocyte# 0.47 X10^3/uL; Monocyte% 10.7 % (0-10); NRBC Flagged by Analyzer 0 % (0-5); Neutrophil # 2.13 X10^3/uL (2.7-7.7); Neutrophil % 48.5 % (47-70); Platelet Count 201 K/mm3 (150-450); RBC Distribution Width CV 12.3 % (11.6-14.6); RBC Distribution Width SD 42.7 fl (35.1-43.9); Red Blood Count 4.63 M/mm3 (4.6-6.2); White Blood Count 4.4 K/mm3 (4.4-11.0)
[2023-07-28 08:33] LABS: ALB/GLOB Ratio 1.1 RATIO (0.9-2.4); AST(SGOT) 29 U/L (15-37); Alanine Aminotransfer ALT/SGPT 73 U/L (16-61); Albumin, Serum 3.9 g/dL (3.2-5.0); Alkaline Phosphatase 58 U/L (45-117); Anion Gap 7 (5-15); BUN 18 mg/dL (7-18); BUN/Creat Ratio 14.5 RATIO (10-20); Calcium,Total 9.6 mg/dL (8.5-10.1); Chloride 110 mmol/L (98-107); Cholesterol 271 mg/dL (200); Creatinine, Serum 1.24 mg/dL (0.70-1.30); EST Glomerular Filtration Rate 62 mL/min (>60); Est Glom Filt Rate - Afr Amer 74 mL/min (>60); Globulin 3.6 g/dL (2.2-4.2); Glucose 98 mg/dL (74-106); High Density Lipoprotein 59 mg/dL; PSA,Total- Diagnostic 0.34 ng/mL (0.0-4.0); Potassium 4.5 mmol/L (3.5-5.1); Prolactin 33.2 ng/mL; Protein, Total 7.5 g/dL (6.4-8.2); Sodium Level 141 mmol/L (136-145); Triglycerides 141 mg/dL; Very Low Density Lipoprotein 28 mg/dL (5-40)
[2023-07-28 14:36] LABS: Hepatitis C Antibody Non-Reactive (Nonreactive); Vitamin B12 304 pg/mL (211-911); Vitamin D,25 Hydroxy 74.2 ng/mL
[2023-08-06 10:08] LABS: Testosterone, % Free 3.06 % (1.50-4.20); Testosterone, Total 464 ng/dL (264-916)
== END | disposition home or self-care (01) ==
LOC: LAB 07:17
PROVIDERS: PCP Internal Medicine; Referring Provider Internal Medicine; Visit Provider Internal Medicine
DX: D75.1 Secondary polycythemia (principal); D35.2 Benign neoplasm of pituitary gland; N42.9 Disorder of prostate, unspecified; Z12.5 Encounter for screening for malignant neoplasm of prostate; Z11.59 Encounter for screening for other viral diseases; E78.5 Hyperlipidemia, unspecified; E55.9 Vitamin D deficiency, unspecified; Z51.81 Encounter for therapeutic drug level monitoring
CPT/HCPCS: 36415; 80053; 80061; 82306; 82607; 84146; 84153; 84402; 84403; 84443; 85025; 86803

== ENCOUNTER 2023-08-31 18:53 | Emergency (ER) | payer MEDICARE, SELFPAY ==
[2023-08-31 18:54] VITALS: BP 137/88; PULSE 81; RESP 20; TEMP 36.1; O2SAT 97; BMI 26.2
--- NOTE | 2023-08-31 19:09 | EKG12_ITS ---
Test Reason : DYSRHYTHMIA Blood Pressure : / mmHG Vent. Rate : 086 BPM Atrial Rate : 086 BPM P-R Int : 174 ms QRS Dur : 078 ms QT Int : 336 ms P-R-T Axes : 045 073 036 degrees QTc Int : 402 ms Normal sinus rhythm Normal ECG Confirmed by Aaron Machado ([id number]), newspaper or periodical editor BRIAN VAIL ([id number]) on 09/01/2023 9:29:26 AM Referred By: LIAM Confirmed By:Aaron Machado
--- NOTE | 2023-08-31 19:20 | EX.ED.DYSGE1 ---
HPI <DOUGLAS Bautista - Last Filed: 08/31/23 22:02> History of Present Illness Chief Complaint: General Illness Narrative Narrative: Patient presenting today due to symptoms of GERD that he has had over the past 24 hours. He reports a history of GERD and has been experiencing burning from the epigastric region of his stomach up to his throat. This feels consistent with his usual GERD symptoms, however, they do not normally last this long. He has tried taking Mylanta and Prevacid with minimal relief. He reports that yesterday he did drink V8 tomato juice and ate something slightly spicy for dinner and is not sure if that is what caused it. However, he did recently have a coronary artery calcium score performed that was 730.8. He discussed his symptoms today with his PCP and she encouraged him to come for evaluation given this elevated score. He denies any history of cardiac disease. He denies any exertional symptoms. No significant family history of cardiac disease. He denies shortness of breath, abdominal pain, nausea, and vomiting. No history of blood clots, recent surgery/procedure/travel/immobilization. PMH includes hyperlipidemia. PFSH <DOUGLAS Bautista - Last Filed: 08/31/23 22:02> PFSH Medical History (Updated 08/31/23 @ 21:51 by DOUGLAS Bautista) Depression GERD (gastroesophageal reflux disease) Hypercholesteremia Pituitary adenoma Home Medications sucralfate 1 gram tablet (Carafate) 1 g PO BID #10 tabs 08/31/23 [Rx Last Taken Unknown] Allergy/AdvReac Type Severity Reaction Status Date / Time No Known Allergies Allergy Verified 08/31/23 18:56 Social History Smoking Status: Former smoker ROS <DOUGLAS Bautista - Last Filed: 08/31/23 22:02> ROS ED Constitutional Constitutional ED: Denies chills or fever(s) Cardiovascular Cardiovascular: Reports chest pain; Denies palpitations Respiratory/Chest Respiratory/Chest: Denies cough or dyspnea Gastrointestinal Gastrointestinal: Denies abdominal pain, nausea or vomiting Musculoskeletal Musculoskeletal: Denies arthralgias or myalgias Integumentary Denies rash Neurologic Neurologic: Denies weakness EXAM <DOUGLAS Bautista - Last Filed: 08/31/23 22:02> Physical Exam Const Vital Signs: 08/31/23 18:54 08/31/23 19:21 08/31/23 20:44 Temperature 97.0 F L Temperature Source Temporal Pulse Rate 81 80 Respiratory Rate 20 H 20 H Respiratory Effort Normal Respiratory Pattern Normal Blood Pressure 137/88 H 130/81 H Blood Pressure Mean 104 97 Pulse Ox 97 98 Oxygen Delivery Method Room Air Room Air Positive well nourished, well developed and no apparent distress General Appearance ED: well developed HEENT Reports normocephalic and head/scalp atraumatic Mouth ED: Yes moist mucous membranes normal Eyes PERRL and EOMs intact bilaterally Neck full ROM and supple Chest Wall inspection of chest normal Resp normal respiratory effort and clear to auscultation bilaterally Cardio regular rate and regular rhythm GI soft to palpation, non-tender, non-distended and no masses Back/Spine normal ROM and normal to inspection Extremity normal to inspection and full ROM Neuro oriented x3, CN's II-XII intact bilaterally, moves all extremities, no focal motor deficits and no sensory deficits noted Sensorium / Orientation: awake and alert Psych mental status grossly normal and thought process normal Skin no rashes or lesions noted and no wounds <Dr. Sidney Stone DO - Last Filed: 08/31/23 21:58> Physical Exam Const Vital Signs: 08/31/23 18:54 08/31/23 19:21 08/31/23 20:44 Temperature 97.0 F L Temperature Source Temporal Pulse Rate 81 80 Respiratory Rate 20 H 20 H Respiratory Effort Normal Respiratory Pattern Normal Blood Pressure 137/88 H 130/81 H Blood Pressure Mean 104 97 Pulse Ox 97 98 Oxygen Delivery Method Room Air Room Air [facility] <DOUGLAS Bautista - Last Filed: 08/31/23 22:02> [facility] Narrative Medical decision making narrative: Patient presenting due to gastric reflux that he has had over the past 24 hours. Has a history of GERD but was never had symptoms last this long and reports being anxious given his recent elevated CT cardiac calcium score. Cardiac labs obtained. He is well-appearing and in no acute distress. Chest x-ray obtained to rule out cardiopulmonary abnormality. His labs overall are unremarkable. Chest x-ray negative for any acute findings. Labs overall are unremarkable. He was given a GI cocktail which did give little relief of his symptoms. He has been complaining of hiccups over the past few hours, he was given Thorazine which did improve his symptoms. He does have vague flulike symptoms that started yesterday such as malaise and a headache, COVID, influenza, and RSV swab obtained and is negative. He was given Toradol for headache and on reexamination reports improvement of his symptoms. I did speak with Dr. Machado with cardiology who patient has a appointment within about a month, he recommends possibly starting patient on metoprolol and following up as an outpatient, he does not feel that this sounds cardiac in nature. Patient reports that his blood pressure normally runs low and has been on metoprolol in the past and did not tolerate it well and does not want to start that at this time. He will be given a prescription for Carafate and a GI referral. He will be discharged home in stable condition and is comfortable with plan. I have personally performed a face to face assessment of the patient and have reviewed the MICHAEL Note. I performed a substantive portion of the visit including all aspects of the following. My cool findings include: History is [patient presents with heartburn symptoms since yesterday. Patient states typically his heartburn is well-controlled with his daily Prevacid. Patient concerned because he has had worse heartburn than usual and he recently had a CAT scan cardiac score that showed high calcium level and his primary care physician instructed him to get evaluated to make sure that the heartburn is not something more serious. Patient does not have a heart history otherwise. He does have history of elevated cholesterol. He has not had any exertional symptoms. He describes the discomfort more in his abdomen. He has not had any hematemesis or black tarry stools. Patient is scheduled to follow-up with cardiology regarding the high calcium scores on his CT.] Exam is [HEBILL-PERRLA, EOMI. Cranial nerves II through XII grossly intact. TMs clear. Mucous membranes moist. No adenopathy. Cardiovascular-regular rate and rhythm without murmur or ectopy Lungs-clear to auscultation, chest wall stable without crepitus or subcu emphysema Abdomen-normoactive bowel sounds, soft, nontender, no rebound or rigidity, no peritoneal signs. Extremities-intact ?4, normal range of motion, normal pulses, atraumatic] Medical Decison Making [patient presents with heartburn symptoms and concern for heart disease given that he had a CAT scan for calcium score that was elevated. Patient denies any exertional symptoms. EKG obtained on arrival shows sinus rhythm with a rate of 86 bpm with no acute ST segment changes. CBC with differential was unremarkable. Chemistries unremarkable. Troponin was normal at 4 and lipase was normal at 26. LFTs were normal. Patient later mentioned that he had a headache this morning and low-grade fever and some chills and was wondering if he had the flu. We did obtain a COVID and flu test as well as RSV which were negative. 1 view chest x-ray was unremarkable. We discussed case with statistical programmer on-call Dr. Machado who will follow patient up as he has an appointment with them in September. We did give patient a GI cocktail and he did have some improvement in his heartburn symptoms. He also came in complaining of hiccups that started yesterday. They are intermittent. Initially they resolved but then they came back so we gave him Thorazine 25 mg IM and again they resolved within started come back. Will refer patient to GI for follow-up and will start on Carafate and will write for Thorazine as needed for hiccups. He has no abdominal discomfort and normal labs are Forei will feel any imaging is indicated.] Other additions or changes: [None] Lab Data Labs: Laboratory Results - last 24 hr 08/31/23 19:20 WBC 5.1 RBC 4.31 L Hgb 13.6 Hct 40.5 MCV 94.0 MCH 31.6 MCHC 33.6 RDW Std Deviation 43.1 RDW Coeff of Tatyana 12.4 Plt Count 144 L MPV 10.0 Immature Gran % (Auto) 0.200 Neut % (Auto) 82.5 H Lymph % (Auto) 8.0 L Cheatham % (Auto) 8.9 Eos % (Auto) 0.2 Baso % (Auto) 0.2 Absolute Neuts (auto) 4.2 Absolute Lymphs (auto) 0.41 L Nucleated RBC % 0 Sodium 142 Potassium 3.6 Chloride 110 H Carbon Dioxide 26.0 Anion Gap 6 BUN 22 H Creatinine 0.92 Estim Creat Clear Calc 79.35 Est GFR (MDRD) Af Amer 106 Est GFR (MDRD) Non-Af 87 BUN/Creatinine Ratio 24.0 H Glucose 114 H Calcium 8.0 L Total Bilirubin 0.70 Direct Bilirubin 0.20 AST 21 ALT 51 Alkaline Phosphatase 45 Troponin I High Sens 4 Total Protein 6.6 Albumin 3.4 Globulin 3.2 Lipase 26 Radiography Diagnostic Testing: Clinical Impression(s) from Imaging Studies Chest X-Ray 08/31/23 19:29 IMPRESSION: No radiographic evidence of acute cardiopulmonary disease. Electronically Signed: Antonio Mendez DO at 20:34 EST Reading Location ID and State: [facility] / [place] Tel [phone], Service support , EKG Initial EKG: Comments: 86 bpm, normal sinus rhythm, no ST elevation, reviewed and interpreted by attending ED physician <Dr. Sidney Stone DO - Last Filed: 08/31/23 21:58> [facility] MDM Narrative Medical decision making narrative: Patient presenting due to gastric reflux that he has had over the past 24 hours. Has a history of GERD but was never had symptoms last this long and reports being anxious given his recent elevated CT cardiac calcium score. Cardiac labs obtained. He is well-appearing and in no acute distress. Chest x-ray obtained to rule out cardiopulmonary abnormality. His labs overall are unremarkable. Chest x-ray negative for any acute findings. I have personally performed a face to face assessment of the patient and have reviewed the MICHAEL Note. I performed a substantive portion of the visit including all aspects of the following. My cool findings include: History is [patient presents with heartburn symptoms since yesterday. Patient states typically his heartburn is well-controlled with his daily Prevacid. Patient concerned because he has had worse heartburn than usual and he recently had a CAT scan cardiac score that showed high calcium level and his primary care physician instructed him to get evaluated to make sure that the heartburn is not something more serious. Patient does not have a heart history otherwise. He does have history of elevated cholesterol. He has not had any exertional symptoms. He describes the discomfort more in his abdomen. He has not had any hematemesis or black tarry stools. Patient is scheduled to follow-up with cardiology regarding the high calcium scores on his CT.] Exam is [HEENT-PERRLA, EOMI. Cranial nerves II through XII grossly intact. TMs clear. Mucous membranes moist. No adenopathy. Cardiovascular-regular rate and rhythm without murmur or ectopy Lungs-clear to auscultation, chest wall stable without crepitus or subcu emphysema Abdomen-normoactive bowel sounds, soft, nontender, no rebound or rigidity, no peritoneal signs. Extremities-intact ?4, normal range of motion, normal pulses, atraumatic] Medical Decison Making [patient presents with heartburn symptoms and concern for heart disease given that he had a CAT scan for calcium score that was elevated. Patient denies any exertional symptoms. EKG obtained on arrival shows sinus rhythm with a rate of 86 bpm with no acute ST segment changes. CBC with differential was unremarkable. Chemistries unremarkable. Troponin was normal at 4 and lipase was normal at 26. LFTs were normal. Patient later mentioned that he had a headache this morning and low-grade fever and some chills and was wondering if he had the flu. We did obtain a COVID and flu test as well as RSV which were negative. 1 view chest x-ray was unremarkable. We discussed case with statistical programmer on-call Dr. Machado who will follow patient up as he has an appointment with them in September. We did give patient a GI cocktail and he did have some improvement in his heartburn symptoms. He also came in complaining of hiccups that started yesterday. They are intermittent. Initially they resolved but then they came back so we gave him Thorazine 25 mg IM and again they resolved within started come back. Will refer patient to GI for follow-up and will start on Carafate and will write for Thorazine as needed for hiccups. He has no abdominal discomfort and normal labs are Forei will feel any imaging is indicated.] Other additions or changes: [None] Lab Data Attestation: I reviewed the patient's lab results. Labs: Laboratory Results - last 24 hr 08/31/23 19:20 WBC 5.1 RBC 4.31 L Hgb 13.6 Hct 40.5 MCV 94.0 MCH 31.6 MCHC 33.6 RDW Std Deviation 43.1 RDW Coeff of Tatyana 12.4 Plt Count 144 L MPV 10.0 Immature Gran % (Auto) 0.200 Neut % (Auto) 82.5 H Lymph % (Auto) 8.0 L Cheatham % (Auto) 8.9 Eos % (Auto) 0.2 Baso % (Auto) 0.2 Absolute Neuts (auto) 4.2 Absolute Lymphs (auto) 0.41 L Nucleated RBC % 0 Sodium 142 Potassium 3.6 Chloride 110 H Carbon Dioxide 26.0 Anion Gap 6 BUN 22 H Creatinine 0.92 Estim Creat Clear Calc 79.35 Est GFR (MDRD) Af Amer 106 Est GFR (MDRD) Non-Af 87 BUN/Creatinine Ratio 24.0 H Glucose 114 H Calcium 8.0 L Total Bilirubin 0.70 Direct Bilirubin 0.20 AST 21 ALT 51 Alkaline Phosphatase 45 Troponin I High Sens 4 Total Protein 6.6 Albumin 3.4 Globulin 3.2 Lipase 26 Radiography Diagnostic Testing: Clinical Impression(s) from Imaging Studies Chest X-Ray 08/31/23 19:29 IMPRESSION: No radiographic evidence of acute cardiopulmonary disease. Electronically Signed: Antonio Mendez DO at 20:34 EST Reading Location ID and State: [facility] / [place] Tel [phone], Service support , 1 view chest x-ray obtained interpreted by myself as no evidence of infiltrate or pneumothorax or acute disease process. Radiology in agreement. EKG Initial EKG: Attestation: I personally reviewed and interpreted this EKG as follows: Discharge Plan Triage Chief Complaint: General Illness ED Midlevel Provider: Yazmin Wilson ED Provider: Sidney Stone Dx/Rx/DC Orders Clinical Impression: Viral illness, Gastroesophageal reflux disease Prescriptions: New sucralfate [Carafate] 1 gram tablet 1 g PO BID Qty: 10 0RF Primary Care Provider: Do Cleary Referrals: Do Cleary DO [Primary Care Provider] - 3-5 Days Hansel Figueroa DO [Med Staff - Active Staff] - As Needed Activity Restrictions/Additional Instructions: Follow-up with PCP and return for any worsening of your symptoms. Disposition Disposition: Home, Self Care
[2023-08-31] MEDS: Mag Hydrox/Al Hydrox/Simeth 30 ML UDC PO (19:28)
--- NOTE | 2023-08-31 19:29 | RAD_ITS ---
INDICATION: chest pain EXAMINATION/TECHNIQUE: X-RAY - XR Chest 1 View COMPARISON: FINDINGS: LINES/DEVICES: None. LUNGS: No consolidation, edema or effusion. No pneumothorax. MEDIASTINUM AND CARDIOVASCULAR STRUCTURES: Cardiac silhouette not enlarged. Central airways and mediastinal contour are unremarkable. BONES AND SOFT TISSUES: Old left rib fractures.. RAD/Chest 1 View (Portable) IMPRESSION: No radiographic evidence of acute cardiopulmonary disease. Electronically Signed: Antonio Mendez DO at 20:34 EST ,
[2023-08-31 19:58] LABS: Absolute Lymphocyte Count 0.41 X10^3/uL (0.83-4.51); Absolute Neutrophil Count 4.2 X10^3/uL (2.0-7.7); Basophil# 0.01 X10^3/uL; Basophil% 0.2 % (0-1); Eosinophil# 0.01 X10^3/uL; Eosinophils% 0.2 % (0-5); Hematocrit 40.5 % (40-54); Hemoglobin 13.6 g/dL (13.0-16.5); Lymphocyte # 0.41 X10^3/ul (0.83-4.51); Mean Corp Hgb Conc 33.6 g/dL (32-36); Mean Corpuscular Hgb 31.6 pg (27.0-32.0); Monocyte# 0.46 X10^3/uL; Monocyte% 8.9 % (0-10); NRBC Flagged by Analyzer 0 % (0-5); Neutrophil # 4.24 X10^3/uL (2.7-7.7); Neutrophil % 82.5 % (47-70); POSITIVE DIFFERENTIAL YES; Platelet Count 144 K/mm3 (150-450); RBC Distribution Width CV 12.4 % (11.6-14.6); RBC Distribution Width SD 43.1 fl (35.1-43.9); Red Blood Count 4.31 M/mm3 (4.6-6.2); White Blood Count 5.1 K/mm3 (4.4-11.0)
[2023-08-31 20:22] LABS: AST(SGOT) 21 U/L (15-37); Alanine Aminotransfer ALT/SGPT 51 U/L (16-61); Albumin, Serum 3.4 g/dL (3.2-5.0); Alkaline Phosphatase 45 U/L (45-117); Anion Gap 6 (5-15); BUN 22 mg/dL (7-18); Chloride 110 mmol/L (98-107); Creatinine, Serum 0.92 mg/dL (0.70-1.30); EST Glomerular Filtration Rate 87 mL/min (>60); Est Glom Filt Rate - Afr Amer 106 mL/min (>60); Estimated Creatinine Clearance 79.35 ml/min; Globulin 3.2 g/dL (2.2-4.2); Glucose 114 mg/dL (74-106); Lipase 26 U/L (13-75); Potassium 3.6 mmol/L (3.5-5.1); Protein, Total 6.6 g/dL (6.4-8.2); Sodium Level 142 mmol/L (136-145); Troponin-I HS 4 pg/mL (3.0-78.0)
[2023-08-31 20:44] VITALS: BP 130/81; PULSE 80; RESP 20; O2SAT 98
[2023-08-31] MEDS: ChlorproMAZINE 50 MG/2 ML Ampul 25 MG IM (21:04)
[2023-08-31] MEDS: Ketorolac 15 MG/ML Vial IV (21:04)
[2023-08-31 21:59] VITALS: BP 106/70; PULSE 75; RESP 16; O2SAT 94
== END 2023-08-31 22:05 | disposition home or self-care (01) ==
PROVIDERS: Physician Assistant; Emergency Provider Emergency Medicine; PCP Internal Medicine; Visit Provider Emergency Medicine
DX: B34.9 Viral infection, unspecified (principal); K21.9 Gastro-esophageal reflux disease without esophagitis; Z87.891 Personal history of nicotine dependence; E78.5 Hyperlipidemia, unspecified; R51.9 Headache, unspecified
CPT/HCPCS: 71045; 80048; 80076; 83690; 84484; 85025; 87631; 93005; 99284; A4216

== ENCOUNTER → 2023-10-12 | Outpatient (CLI) | payer MEDICARE, SELFPAY ==
--- NOTE | 2023-10-12 14:01 | STRESSREP ---
Stress Test Report Exercise stress test. 67-year-old man with a history of elevated calcium score Stress protocol: Resting EKG demonstrates normal sinus rhythm with a rate of 63 bpm resting blood pressure is 138/86 mmHg. The patient exercised according to the regular Freddy protocol for a total duration of 11 minutes and 30 seconds completing 2 minutes and 31 seconds into stage IV of the Freddy protocol, attaining a maximum heart rate of 176 bpm which was 115% of maximum predicted heart rate; the maximum workload was 13.4 metabolic equivalents. At rest there were no ST or T wave changes noted to suggest ischemia and at peak exercise upsloping ST changes only were noted which did not meet the criteria for ischemia. No clinical angina was noted the test was terminated due to the target heart rate being achieved/fatigue. The peak blood pressure was 142/82 mmHg. Rate-pressure product was 23,800. Conclusion: Normal exercise stress test with no evidence of angina or ischemia on EKG. Excellent functional aerobic capacity.
== END | disposition home or self-care (01) ==
LOC: CVS 09:51
PROVIDERS: PCP Internal Medicine; Referring Provider Internal Medicine Cardiovascular Disease; Visit Provider Internal Medicine Cardiovascular Disease
DX: I25.10 Atherosclerotic heart disease of native coronary artery without angina pectoris (principal)
CPT/HCPCS: 93017

== ENCOUNTER → 2023-10-30 | Outpatient (CLI) | payer MEDICARE, SELFPAY ==
[2023-10-30 09:30] LABS: Vitamin B12 446 pg/mL (211-911)
[2023-10-30 09:45] LABS: AST(SGOT) 16 U/L (15-37); Alanine Aminotransfer ALT/SGPT 38 U/L (16-61); Albumin, Serum 4.1 g/dL (3.2-5.0); Alkaline Phosphatase 47 U/L (45-117); Bilirubin, Direct 0.14 mg/dL (0.00-0.30); Cholesterol 148 mg/dL (200); High Density Lipoprotein 63 mg/dL; Protein, Total 7.1 g/dL (6.4-8.2); Thyroid Stim Hormone (TSH) 4.31 uIU/mL (0.358-3.74); Triglycerides 104 mg/dL; Very Low Density Lipoprotein 21 mg/dL (5-40)
== END | disposition home or self-care (01) ==
LOC: LAB 08:06
PROVIDERS: PCP Internal Medicine; Referring Provider Internal Medicine; Visit Provider Internal Medicine
DX: R79.89 Other specified abnormal findings of blood chemistry (principal); E53.8 Deficiency of other specified B group vitamins
CPT/HCPCS: 36415; 80061; 80076; 82607; 84443

== ENCOUNTER → 2024-03-17 | Outpatient (CLI) | payer MEDICARE, SELFPAY ==
[2024-03-17 17:59] LABS: T4 Free Direct 0.77 ng/dL (0.76-1.46)
[2024-03-19 08:12] LABS: Thyroid Peroxidase AB < 9 IU/mL (0-34)
== END | disposition home or self-care (01) ==
LOC: VSLAB 15:32
PROVIDERS: PCP Internal Medicine; Visit Provider Internal Medicine Endocrinology, Diabetes & Metabolism
DX: E03.9 Hypothyroidism, unspecified (principal)
CPT/HCPCS: 36415; 84439; 84443; 86376

== ENCOUNTER → 2024-05-12 | Outpatient (CLI) | payer MEDICARE, SELFPAY ==
[2024-05-12 12:47] LABS: Absolute Neutrophil Count 2.8 X10^3/uL (2.0-7.7); Basophil# 0.05 X10^3/uL; Eosinophil# 0.08 X10^3/uL; Eosinophils% 1.7 % (0-5); Hemoglobin 13.9 g/dL (13.0-16.5); Mean Corp Hgb Conc 33.9 g/dL (32-36); Mean Corpuscular Hgb 32.3 pg (27.0-32.0); Mean Corpuscular Volume 95.3 fL (80-94); Mean Platelet Vol. 9.8 fl (6.2-12.0); Monocyte# 0.52 X10^3/uL; Monocyte% 10.8 % (0-10); NRBC Flagged by Analyzer 0 % (0-5); Neutrophil # 2.77 X10^3/uL (2.7-7.7); Neutrophil % 57.3 % (47-70); Platelet Count 155 K/mm3 (150-450); RBC Distribution Width CV 12.1 % (11.6-14.6); RBC Distribution Width SD 42.4 fl (35.1-43.9); White Blood Count 4.8 K/mm3 (4.4-11.0)
[2024-05-14 08:11] LABS: PSA, Free 0.11 ng/mL; PSA, Free % 52.9 % (.); PSA, Total Ultrasensitive 0.208 ng/mL (0.000-4.000)
== END | disposition home or self-care (01) ==
PROVIDERS: PCP Internal Medicine; Visit Provider Internal Medicine Endocrinology, Diabetes & Metabolism
DX: E29.1 Testicular hypofunction (principal); D75.1 Secondary polycythemia; N42.9 Disorder of prostate, unspecified
CPT/HCPCS: 36415; 84146; 84153; 84154; 85025

== ENCOUNTER 2024-09-22 14:30 | Outpatient (RCR) | payer MEDICARE, SELFPAY ==
--- NOTE | 2024-08-23 16:32 | HP.PTEVAL_ITS ---
Patient's Visit Information Visit Information Visit Information: HELENE PARISH is a 68 year old M referred to Physical Therapy by Dr. Kevin Oglesby DO with a diagnosis of UNILATERAL PRIMARY OSTEOARTHRITIS LEFT KNEE. Date of Evaluation: 08/23/24 Physical Therapist: Obdulio Contreras PT, Cert MDT, OCS Visit Plan Duration: 4 Weeks Plan: PT INTERVENTIONS ROM KNEE /FLEXABILITY HAMSTRINGS/QUADS ,STRENGTHENING QUADS/HAMS/HIP AND FUNCTIONAL STRENGTHENING Subjective Subjective: This 68 y/o male presents to physical therapy with with left knee OA. Patient has had left knee pain many years 2013 . In past seen ortho DR Felix. Patient pain progressively worse past [address] Oglesby x-rays showed [id number] tricompartmental degenerative changes of the left knee are seen. At least moderate medial joint narrowing is noted. Probable mild patellofemoral joint noted.Significant chronic appearing irregularity of the articular aspect of the medial femoral condyle, likely due to prior osteochondral injury. Did cortisone possible gel injection .Prescribed celebrex. Pain located medial compartment . Patient symptoms Aggravating uneven surfaces ,squatting ,stairs and kneeling. Alleviating factors stretching . Patient pain affects sleeping. Denies paresthesia/tingling. Patient went on hiking trip couple years ago noticed symptoms worse. Patient goals to to get stronger and decrease pain. SOCIAL; VOCATION: retired Pain Right Knee: Pain Intensity (Out of 10): 3 Pain Intensity Range: 10 Objective Objective: POSTURE: mild forward posture left knee slightly flexed PALAPTION: slight medial joint line left GAIT: reciprocal pattern EDEMA: absent NEURO: paresthesia/tingling AROM: supine knee flexion 5-127 degrees MMT: quads/hams 4/5 ,( peak force) hip flexion 27.8 hip abduction 19.8 FLEXABILITY: min/mod tight left STAIRS: alternating Special Tests L Knee Posterior Sag - PCL: Negative L Knee Valgus - MCL: Negative L Knee Varus - LCL: Negative L Knee Patellar Apprehension - PFS: Negative L Knee Patellar Grind - PFS: Negative Balance/Special Test Scores Lower Extremity Functional Score: 48 Goals Goal 1:: Patient to be I with HEP for knee Goal Time Frame: 4-6 Weeks Goal 2:: Patient to demonstrate 50% improvement with less pain and improved function Goal Time Frame: 4-6 Weeks Goal 3:: Patient to improve AROM supine knee flexion 0-135 degrees to improve stairs Goal Time Frame: 4-6 Weeks Goal 4:: Patient to improve peak force hips by 5-10# to improve function and strength Goal Time Frame: 4-6 Weeks Goal 5:: Patient to improve LFES score by score 5 points to improve QOL Goal Time Frame: 4-6 Weeks Rehabilitation Potential Physical Therapy Diagnosis: This patient has progressive DJD greater medial than lateral with decrease ROM ,weakness ,impairs gait and function thus benefit from skilled PT Rehabilitation Potential: Good Anticipated Interventions Patient/Client Instruction: Educate patient on: Condition and Plan of Care For the Purpose of:: To decrease pain, To increase ROM, To improve muscle performance and motor function, To improve ability to perform ADL's, To increase tolerance to activity/condition/position, To improve ability of physical actions for home/community/work/leisure, To improve health of tissue, To decrease soft tissue restriction, To increase flexibility/ROM, To reduce risk of recurrence and To improve tolerance to ADL's Therapeutic Exercise to Include: Strength training, Flexibilty training, Gait and locomotor training and Active ROM For the Purpose of:: To decrease pain, To increase ROM, To improve muscle performance and motor function, To improve ability to perform ADL's, To increase tolerance to activity/condition/position, To improve ability of physical actions for home/community/work/leisure, To improve health of tissue, To decrease soft tissue restriction and To increase flexibility/ROM Text: Thank you for the opportunity to evaluate your patient. For Medicare and Medicare HMO plans, please review the plan of care and approve it. It will need to be FAXED BACK to us at [phone] for Medicare purposes. For Medicare only, by signing this I certify the plan of care. Please let me know if there are questions or concerns regarding this plan of care. Physician Signature: Date:
--- NOTE | 2024-09-22 14:56 | HP.PTDCSUM_ITS ---
Discharge Summary D/C summary: It has been my pleasure to treat HELENE PARISH referred by Dr. Kevin Oglesby DO, with the diagnosis of UNILATERAL PRIMARY OSTEOARTHRITIS LEFT KNEE for a total of 10 visit(s). Discharge Date: Please see the following information for a summary of their discharge status. Subjective Subjective: Don't much better Want to return DR Johnson did not help Pain Right Knee: Pain Intensity (Out of 10): 0 L knee: Pain Intensity (Out of 10): 4 Overall Improvement % Improvement: 0 Objective Objective/Function: POSTURE: mild forward posture left knee slightly flexed PALAPTION: slight medial joint line left GAIT: reciprocal pattern EDEMA: absent NEURO: paresthesia/tingling AROM: supine knee flexion 0-130 degrees MMT: quads/hams 4/5 ,( peak force) hip flexion 58..8 hip abduction 41.7 FLEXABILITY: min tight left STAIRS: alternating Goals Goal 1:: Patient to be I with HEP for knee Goal Progress: Goal Met Goal 2:: Patient to demonstrate 50% improvement with less pain and improved function Goal Progress: Not Progressing Goal 3:: Patient to improve AROM supine knee flexion 0-135 degrees to improve stairs Goal Progress: Progressing Goal 4:: Patient to improve peak force hips by 5-10# to improve function and s trength Goal Progress: Goal Met Goal 5:: Patient to improve LFES score by score 5 points to improve QOL Goal Progress: Progressing Plan Plan: RTD D/C Information d/c sentence: If there are questions or concerns regarding this patient's physical therapy, please feel free to call me at [phone]. Thank you for the referral of this patient. Sincerely, Obdulio Contreras, PT, Cert MDT, OCS Balance/Gait/Functional tests Balance/Special Test Scores Lower Extremity Functional Score: 58 Improvement % Improvement: 0
== END 2024-09-22 19:00 | disposition home or self-care (01) ==
LOC: PT 14:30
PROVIDERS: Referring Provider Orthopaedic Surgery; Visit Provider Orthopaedic Surgery
DX: M17.12 Unilateral primary osteoarthritis, left knee (principal)
CPT/HCPCS: 97110; 97162; 97530

== ENCOUNTER → 2024-11-03 | Outpatient (CLI) | payer MEDICARE, SELFPAY ==
[2024-11-03 12:51] LABS: Absolute Lymphocyte Count 1.36 X10^3/uL (0.83-4.51); Absolute Neutrophil Count 2.2 X10^3/uL (2.0-7.7); Basophil# 0.06 X10^3/uL; Basophil% 1.4 % (0-1); Eosinophils% 2.4 % (0-5); Hematocrit 41.7 % (40-54); Hemoglobin 14.6 g/dL (13.0-16.5); Lymphocyte # 1.36 X10^3/ul (0.83-4.51); Mean Corpuscular Hgb 32.7 pg (27.0-32.0); Mean Corpuscular Volume 93.3 fL (80-94); Mean Platelet Vol. 9.8 fl (6.2-12.0); Monocyte# 0.56 X10^3/uL; Monocyte% 13.2 % (0-10); NRBC Flagged by Analyzer 0 % (0-5); Neutrophil # 2.16 X10^3/uL (2.7-7.7); Neutrophil % 50.8 % (47-70); Platelet Count 162 K/mm3 (150-450); RBC Distribution Width CV 12.4 % (11.6-14.6); RBC Distribution Width SD 42.5 fl (35.1-43.9); Red Blood Count 4.47 M/mm3 (4.6-6.2); White Blood Count 4.3 K/mm3 (4.4-11.0)
[2024-11-04 13:08] LABS: PSA, Free 0.15 ng/mL; PSA, Free % 60.2 % (.); PSA, Total Ultrasensitive 0.249 ng/mL (0.000-4.000)
== END | disposition home or self-care (01) ==
LOC: VSLAB 09:59
PROVIDERS: Visit Provider Internal Medicine Endocrinology, Diabetes & Metabolism
DX: D35.2 Benign neoplasm of pituitary gland (principal); E29.1 Testicular hypofunction; D75.1 Secondary polycythemia; N42.9 Disorder of prostate, unspecified
CPT/HCPCS: 36415; 84153; 84154; 84439; 84443; 85025

== ENCOUNTER → 2024-11-04 | Outpatient (CLI) | payer MEDICARE, SELFPAY ==
--- NOTE | 2024-11-04 10:43 | RAD_ITS ---
PROCEDURE: CHEST PA AND LATERAL 11/04/2024 REASON FOR EXAM: COUGH, CHEST PAIN TECHNIQUE: Frontal and lateral views of the chest. COMPARISON: None FINDINGS: Hardware: None Heart: The heart size is normal. Mediastinum: The mediastinal contour is unremarkable. Lungs: The lungs are clear. Bones: Increased kyphosis. RAD/Chest PA and Lateral IMPRESSION: NO ACUTE FINDINGS. Reading Location: [id number]
== END | disposition home or self-care (01) ==
LOC: RAD 10:38
PROVIDERS: Referring Provider Student in an Organized Health Care Education/Training Program; Visit Provider Student in an Organized Health Care Education/Training Program
DX: R07.89 Other chest pain (principal); R05.9 Cough, unspecified
CPT/HCPCS: 71046

== ENCOUNTER → 2024-11-14 | Outpatient (CLI) | payer MEDICARE, SELFPAY ==
[2024-11-15 04:07] LABS: PROLACTIN 40.5 ng/mL (3.6-25.2)
== END | disposition home or self-care (01) ==
LOC: LAB 11:33
PROVIDERS: Referring Provider Internal Medicine Endocrinology, Diabetes & Metabolism; Visit Provider Internal Medicine Endocrinology, Diabetes & Metabolism
DX: E29.1 Testicular hypofunction (principal); D35.2 Benign neoplasm of pituitary gland
CPT/HCPCS: 36415; 84146

== ENCOUNTER → 2024-12-02 | Outpatient (CLI) | payer MEDICARE, SELFPAY ==
--- NOTE | 2024-12-02 15:41 | STRESSREP ---
Stress Test Report Exercise stress test. 69-year-old male with a history of chest pain Stress protocol: Resting EKG demonstrates normal sinus rhythm with a rate of 88 bpm resting blood pressure is 122/86 mmHg. The patient exercised according to the regular Freddy protocol for a total duration of 10 minutes attaining a maximum heart rate of 162 bpm which was 108% of maximum predicted heart rate; the maximum workload was 13.4 metabolic equivalents. At rest there were no ST or T wave changes noted to suggest ischemia and at peak exercise upsloping ST changes only were noted which did not meet the criteria for ischemia. No clinical angina was noted the test was terminated due to the target heart rate being achieved/fatigue. The peak blood pressure was 162/82 mmHg. Rate-pressure product was 22,500. Conclusion: Stress test with no EKG criteria for ischemia at a high workload. Good functional capacity. No arrhythmias noted.
== END | disposition home or self-care (01) ==
LOC: CVS 09:49
PROVIDERS: Referring Provider Student in an Organized Health Care Education/Training Program; Visit Provider Student in an Organized Health Care Education/Training Program
DX: R07.89 Other chest pain (principal)
CPT/HCPCS: 93017

== ENCOUNTER → 2024-12-14 | Outpatient (CLI) | payer MEDICARE, SELFPAY ==
[2024-12-14 07:45] LABS: AST(SGOT) 20 U/L (<=37); Alanine Aminotransfer ALT/SGPT 20 U/L (<=46); Albumin, Serum 4.3 g/dL (3.4-4.8); Alkaline Phosphatase 38 U/L (40-129); Bilirubin, Direct 0.24 mg/dL (0.00-0.30); Cholesterol 150 mg/dL (<=200); Globulin 2.4 g/dL (2.2-4.2); High Density Lipoprotein 61 mg/dL; Low Density Lipoprotein Calc. 66 mg/dL; Protein, Total 6.6 g/dL (5.9-8.4); Total Bilirubin 0.52 mg/dL (0.00-1.30); Triglycerides 116 mg/dL; Very Low Density Lipoprotein 23 mg/dL (5-40); cholesterol:hdl ratio screen 2.45
== END | disposition home or self-care (01) ==
LOC: LAB 06:39
PROVIDERS: Referring Provider Student in an Organized Health Care Education/Training Program; Visit Provider Student in an Organized Health Care Education/Training Program
DX: E78.00 Pure hypercholesterolemia, unspecified (principal)
CPT/HCPCS: 36415; 80061; 80076

== ENCOUNTER → 2025-01-26 | Outpatient (CLI) | payer MEDICARE, SELFPAY ==
--- NOTE | 2025-01-26 09:24 | BD_ITS ---
PROCEDURE: DEXA BONE DENSITY STUDY 01/26/2025 REASON FOR EXAM: M, age 69 y/o . Osteopenia multiple sites. TECHNIQUE: DEXA BONE DENSITY STUDY COMPARISON: Prior study dated July 03, 2011. FINDINGS: BMD and T-SCORES Lumbar spine: 0.928 g/cm2, T-score -1.5 Levels: L1 through L4 Change from prior: Loss of 8.6%. Left femoral neck: 0.751 g/cm2, T-score -1.3 Femoral neck comparison data not recommended for monitoring change. Left total hip: 0.965 g/cm2, T-score -0.5 Change from prior: Improvement of 5.9%. Right femoral neck: 0.666 g/cm2, T-score -1.9 Femoral neck comparison data not recommended for monitoring change. Right total hip: 0.914 g/cm2, T-score -0.8 Change from prior: Improvement of 5.8%. The World Health Organization has defined the following categories based on bone density: Normal bone density: T-score equal to or greater than -1.0 Osteopenia: T-score between -1.0 and -2.5 Osteoporosis: T-score equal to or less than -2.5 The patient does meet the pharmacological treatment recommendations for prevention of osteoporosis. BD/Dexa Bone Density Study IMPRESSION: OSTEOPENIA. Recommend follow-up as clinically warranted. Reading Location: [place] [id number]
== END | disposition home or self-care (01) ==
DX: Z00.00 Encounter for general adult medical examination without abnormal findings (principal); Z79.52 Long term (current) use of systemic steroids
CPT/HCPCS: 77080

== ENCOUNTER → 2025-03-17 | Outpatient (CLI) | payer MEDICARE, SELFPAY ==
--- NOTE | 2025-03-17 13:28 | MRI_ITS ---
PROCEDURE: MRI BRAIN W/WO CONTRAST 03/17/2025 REASON FOR EXAM: Left-sided hearing loss, tinnitus, evaluate for acoustic neuroma. History of pituitary microadenoma, elevated prolactin. TECHNIQUE: Procedure Code: [id number] Modality: MR Procedure: BRAIN W/WO CONTRAST Multiplanar and multisequence images were obtained. Dedicated thin slice small [id number] sequences through the internal auditory canals and sella turcica were obtained pre and postcontrast. CONTRAST: Clariscan VOLUME: 15 mL COMPARISON: Brain MRIs dated 06/02/2018, 08/18/2017. FINDINGS: Pituitary gland is not enlarged. Stable asymmetric downward displacement of the right sellar floor, with leftward deviation of the pituitary infundibulum. There is a 4-5 mm nodular focus of T2 hyperintense signal abnormality and enhancing tissue at the right lateral aspect of the pituitary gland/sella which abuts the superior right aspect of the cavernous sinus, grossly stable in size and appearance from prior examinations. Dynamic postcontrast images would be needed to more accurately assess a microadenoma. Parasellar structures appear normal. Normal optic chiasm. No intracranial mass lesion or pathologic enhancement elsewhere. Specifically, no mass lesion or abnormal enhancement in the region of the internal auditory canals or CP angle cisterns on either side. Normal symmetric T2 fluid signal is preserved within the bilateral inner ear structures. No evidence for aberrant vasculature or other findings to explain hearing loss/tinnitus. No regions of abnormal restricted diffusion, no recent infarct. Moderate generalized brain parenchymal volume loss, and minimal scattered foci of leukoaraiosis in the supratentorial white matter. No acute intracranial hemorrhage, extra-axial collection, or mass-effect. Unremarkable orbits. Well-aerated paranasal sinuses and bilateral mastoid air cells. MRI/Brain W/WO Contrast IMPRESSION: 1. No acute intracranial abnormality. 2. Stable sellar contents, with asymmetry and small 4-5 mm nodular focus of sig nal abnormality at the right aspect of the pituitary gland compatible with microadenoma as previously described, although dynamic postcontrast sequences would be needed to better characterize. 3. No mass lesion, pathologic enhancement or other findings to explain hearing loss/tinnitus. Reading Location: [id number]
== END | disposition home or self-care (01) ==
LOC: MRI 13:13
PROVIDERS: Referring Provider Otolaryngology; Visit Provider Otolaryngology
DX: H93.12 Tinnitus, left ear (principal); D35.2 Benign neoplasm of pituitary gland; H90.3 Sensorineural hearing loss, bilateral
CPT/HCPCS: 70553; A9575

== ENCOUNTER → 2025-05-15 | Outpatient (CLI) | payer MEDICARE, SELFPAY ==
[2025-05-16 04:07] LABS: PROLACTIN 35.2 ng/mL (3.6-25.2)
== END | disposition home or self-care (01) ==
LOC: LAB.FUTURE 10:27 → VSLAB 10:27
PROVIDERS: Referring Provider Internal Medicine Endocrinology, Diabetes & Metabolism; Visit Provider Internal Medicine Endocrinology, Diabetes & Metabolism
DX: E29.1 Testicular hypofunction (principal); D35.2 Benign neoplasm of pituitary gland; D75.1 Secondary polycythemia; N42.9 Disorder of prostate, unspecified
CPT/HCPCS: 36415; 84146